=== PATIENT | male | born 1975 | race Caucasian/White ===

== ENCOUNTER 2016-11-25 10:14 | Emergency (ER) | payer SELFPAY ==
[2016-11-25] MEDS ORDERED: DEXAMETHASONE SOD PHOS INJ 10 MG/1 ML VIAL IM ONE (10:42)
--- NOTE | 2016-11-25 10:44 | ER Document Report ---
HPI - HPI Pain Level: 5 Notes: Patient is a 40-year-old male who presents the ED complaining of sore throat, right ear pain, occasional cough, body ache, wheezing 4 days. Patient states that he usually gets strep once a year and this is about that same time. Patient also states that his ears been bothering him on and off for the last couple weeks. Patient has a past medical history significant for asthma and smoking. He denies any drug allergies. He does not take any medications daily. Denies any illicit drug use. Patient states that he just moved to the area and does not have any insurance, nor does he have a PCM. Otherwise she is still eating and drinking without any difficulties. Patient states his cough is primarily from the wheeziness and the irritation in his throat. Denies any fever, headache, tinnitus, dizziness, dysphagia, chest pain, syncope, palpitations, shortness of breath, dyspnea, abdominal pain, nausea/R/diarrhea, dysuria, or rash. Denies any recent travel, sick contacts, illness otherwise. - ROS Notes: REVIEW OF SYSTEMS: CONSTITUTIONAL : Denies fever, chills, or sweats. Denies recent illness. EENT: see hpi CARDIOVASCULAR: Denies chest pain. Denies palpitations or racing or irregular heart beat. Denies ankle edema. RESPIRATORY: see hpi GASTROINTESTINAL: Denies abdominal pain or distention. Denies nausea, vomiting , or diarrhea. Denies blood in vomitus, stools, or per rectum. Denies black, tarry stools. Denies constipation. GENITOURINARY: Denies difficulty urinating, painful urination, burning, frequency, blood in urine, or discharge. MUSCULOSKELETAL: see hpi SKIN: Denies rash, lesions or sores. NEUROLOGICAL: Denies confusion or altered mental status. Denies passing out or loss of consciousness. Denies dizziness or lightheadedness. Denies headache. Denies weakness or paralysis or loss of use of either side. Denies problems with gait or speech. Denies sensory loss, numbness, or tingling. Denies seizures. PSYCHIATRIC: Denies anxiety or stress. Denies depression, suicidal ideation, or homicidal ideation. ALL OTHER SYSTEMS REVIEWED AND NEGATIVE. Dictation was performed using [employer] voice recognition software - DERM Skin Color: Normal Past Medical History - Social History Smoking Status: Current Every Day Smoker Family History: Reviewed & Not Pertinent Patient has suicidal ideation: No Patient has homicidal ideation: No Renal/ Medical History: Denies: Hx Peritoneal Dialysis Vertical Provider Document - CONSTITUTIONAL Agree With Documented VS: Yes Notes: PHYSICAL EXAMINATION: GENERAL: Well-appearing, well-nourished and in no acute distress. HEAD: Atraumatic, normocephalic. EYES: Pupils equal round and reactive to light, extraocular movements intact, sclera anicteric, conjunctiva are normal. ENT: EAC clear b/l. Rt TM erythemic, mild bulging, fluid. Lt TM wnl. Nares patent and without discharge. Oropharynx erythematous. Rt tonsilar hypertrophy 1+ with exudate and erythema. Lt tonsil erythemic. No palatine shift. Uvula midline. No tongue protrusion. moist mucous membranes. No sinus tenderness. No huma's. NECK: Normal range of motion, supple. + anterior cervical chain lymphadenopathy R>L. + tend. No rigidity/meningismus. LUNGS: B/l expiratory wheezes. no crackles. HEART: Regular rate and rhythm without murmurs, rubs, gallops. ABDOMEN: Soft, nontender, nondistended abdomen. No guarding, no rebound. No masses appreciated. Normal bowel sounds present. No CVA tenderness bilaterally. No hepatosplenomegally. Musculoskeletal: FROM to passive/active. Strength 5+/5. Dinora neg. Extremities: No cyanosis, clubbing, or edema b/l. Peripheral pulses 2+. Capillary refill less than 2 seconds. NEUROLOGICAL: Normal speech, normal gait. Normal sensory, motor exams PSYCH: Normal mood, normal affect. SKIN: Warm, Dry, normal turgor, no rashes or lesions noted. - INFECTION CONTROL TRAVEL OUTSIDE OF THE [place] IN LAST 30 DAYS: No - RESPIRATORY O2 Sat by Pulse Oximetry: 96 Course - Re-evaluation Re-evalutation: 11/25/16 11:15 Patient is a mildly febrile, well-hydrated, 40-year-old male who presents to the ED with acute otitis media of the right ear and strep pharyngitis based on H &P today. Vitals are otherwise stable aside from being febrile. Rapid strep negative, but clinically i suspect strep. Tylenol given today. Decadron 10 mg given IM today. Duoneb treatment provided today. Pt's wheezing resolved with treatment, respirations improved. I will send him home with amoxicillin 500 mg 3 times daily 10 days that will cover both the ear and the strep along with an albuterol inhaler rx. Conservative measures otherwise for symptoms. Consider consult with ENT for further evaluation of the right ear. Recheck/establish with PCM this week. Return to ED with any worsening/concerning symptoms otherwise reviewed discharge. Patient is in agreement. - Vital Signs Vital signs: Temp Pulse Resp BP Pulse Ox 101.7 F H 93 21 H 141/76 H 96 11/25/16 10:18 11/25/16 10:18 11/25/16 10:18 11/25/16 10:18 11/25/16 10:18 Discharge - Discharge Clinical Impression: Acute otitis media, right, Strep pharyngitis Condition: Stable Disposition: HOME, SELF-CARE Instructions: Strep Throat ([facility]), Otitis Media ([facility]), Amoxicillin ([facility]) Additional Instructions: Maintain adequate fluid intake Take meds as directed for full dose tylenol/ibuprofen as needed New toothbrush tomorrow evening over the counter cold medication as needed for symptoms Use inhaler as directed F/u: with your PCM in 2-3 days for a recheck Return to the ED with any worsening symptoms and/or development of fever, headache, swelling of lips/tongue/throat, trouble swallowing, neck pain/ stiffness, chest pain, palpitations, syncope, shortness of breath, trouble breathing, abdominal pain, n/v/d, or other worsening symptoms that are concerning to you. Prescriptions: Albuterol Sulfate [Proair HFA] 1 - 2 puff IH Q4 PRN #1 inhaler PRN Reason: Amoxicillin 1 tab PO TID #30 tab Forms: Smoking Cessation Education, Elevated Blood Pressure Referrals: [facility] [Provider Group] - Follow up as needed [facility] [Provider Group] - Follow up as needed ENT [Provider Group] - Follow up as needed
[2016-11-25] MEDS ORDERED: ACETAMINOPHEN 325 MG TABLET PO ONE (10:48)
[2016-11-25] MEDS ORDERED: IPRATROPIUM/ALBUTEROL 0.5-2.5 MG/3 ML AMPUL NEB ONE (10:52)
[2016-11-25 11:58] VITALS: BP 121/73
== END 2016-11-25 11:52 | disposition home or self-care (01) ==
LOC: ER 10:14
DX: J02.0 Streptococcal pharyngitis (principal); H66.91 Otitis media, unspecified, right ear; J45.909 Unspecified asthma, uncomplicated; H92.01 Otalgia, right ear; R05 Cough; R50.9 Fever, unspecified; F17.200 Nicotine dependence, unspecified, uncomplicated
CPT/HCPCS: 94640; 99283; 96372; 87070; 87880; 87077; J1100; J7620

== ENCOUNTER 2018-04-08 09:22 | Emergency (ER) | payer SELFPAY ==
[2018-04-08] MEDS ORDERED: KETOROLAC TROMETHAMINE 60 MG/2 ML SDV IM ONE (09:43)
[2018-04-08] MEDS ORDERED: DIPH/PERTUSS(ACELL)/TETANUS VAC/PF 0.5 ML SYR (>=10YO) IM ONE (09:43)
--- NOTE | 2018-04-08 09:47 | ER Document Report ---
ED Fall - General Chief Complaint: Fall Injury Stated Complaint: BACK AND RIB PAIN Time Seen by Provider: 04/08/18 09:36 Mode of Arrival: Ambulatory Information source: Patient Notes: Chief complaint: Fall History of complain:( obtained from----patient) 42 years old male had a fall last Thursday, states that he was doing some work in the attic tripped fell into a piece of wood on his left side of the chest wall, sustaining a laceration over the right forehead region and eyebrow, and fell through the ceiling to the floor. No headache, no loss of consciousness. Denies any neck pain neck stiffness. Complaint of pain over the lower back and left side of the ribs. Denies any injury to the upper limbs or lower limbs. He was ambulatory for the last 2 days. The lower back pain is increasing intensity therefore present to the ED. As well as chest wall pain Onset: Sudden Duration: 2 days Severity: Moderate Quality: Sharp Context: As described above Exacerbating factor and relieving factors: Taking a deep breath change of position REVIEW OF SYSTEMS: CONSTITUTIONAL : Denies fever, chills, or sweats. Denies recent illness. EENT: Denies eye, ear, throat, or mouth pain or symptoms. Denies nasal or sinus congestion or discharge. Denies throat, tongue, or mouth swelling or difficulty swallowing. CARDIOVASCULAR: Denies chest pain. Denies palpitations or racing or irregular heart beat. Denies ankle edema. RESPIRATORY: Denies cough, cold, or chest congestion. Denies shortness of breath, difficulty breathing, or wheezing. GASTROINTESTINAL: Denies distention. Denies nausea, vomiting, or diarrhea. Denies blood in vomitus, stools, or per rectum. Denies black, tarry stools. Denies constipation. GENITOURINARY: Denies difficulty urinating, painful urination, burning, frequency, blood in urine, or discharge. FEMALE GENITOURINARY: Denies vaginal bleeding, heavy or abnormal periods, irregular periods. Denies vaginal discharge or odor. MUSCULOSKELETAL: Denies back or neck pain or stiffness. Denies joint pain or swelling. SKIN: Denies rash, lesions or sores. HEMATOLOGIC : Denies easy bruising or bleeding. LYMPHATIC: Denies swollen, enlarged glands. NEUROLOGICAL: Denies confusion or altered mental status. Denies passing out or loss of consciousness. Denies dizziness or lightheadedness. Denies headache. Denies weakness or paralysis or loss of use of either side. Denies problems with gait or speech. Denies sensory loss, numbness, or tingling. Denies seizures. PSYCHIATRIC: Denies anxiety or stress. Denies depression, suicidal ideation, or homicidal ideation. ALL OTHER SYSTEMS REVIEWED AND NEGATIVE. PHYSICAL EXAMINATION: GENERAL: Well-appearing, well-nourished and in no acute distress. HEAD: Atraumatic, normocephalic. EYES: Pupils equal round and reactive to light, extraocular movements intact, conjunctiva are normal. ENT: Left upper eyelid minor laceration noted which is healing. Multiple minor abrasions over the forehead and face. Nares patent, oropharynx clear without exudates. Moist mucous membranes. NECK: Normal range of motion, supple without lymphadenopathy Chest wall: Sharp chest wall tenderness noted over the left lower mid axillary, and lower scapular region. On the left side LUNGS: Breath sounds clear to auscultation bilaterally and equal. No wheezes rales or rhonchi. HEART: Regular rate and rhythm without murmurs ABDOMEN: Soft, nontender, nondistended abdomen. No guarding, no rebound. No masses appreciated. Examination of genitals-deferred Musculoskeletal: Sharp tenderness noted over the lower back over the lumbar spine. Normal range of motion, no pitting or edema. No cyanosis. NEUROLOGICAL: Cranial nerves grossly intact. Normal speech, normal gait. Normal sensory, motor exams PSYCH: Normal mood, normal affect. SKIN: Warm, Dry, normal turgor, no rashes or lesions noted. Dictation was performed using [employer] voice recognition software TRAVEL OUTSIDE OF THE [place] IN LAST 30 DAYS: No - HPI Notes: Dictated - Related data Allergies/Adverse Reactions: No Known Allergies Allergy (Verified 04/08/18 09:40) Past Medical History - Social History Smoking Status: Current Every Day Smoker Chew tobacco use (# tins/day): No Frequency of alcohol use: Occasional Drug Abuse: None Lives with: Family Family History: Reviewed & Not Pertinent Patient has suicidal ideation: No Patient has homicidal ideation: No Pulmonary Medical History: Reports: Hx Asthma Renal/ Medical History: Denies: Hx Peritoneal Dialysis Past Surgical History: Reports: Hx Tonsillectomy Review of Systems - Review of Systems Notes: Dictated Physical Exam - Vital signs Vitals: Temp Pulse Resp BP Pulse Ox 98.0 F 77 18 132/82 H 99 04/08/18 09:30 04/08/18 09:30 04/08/18 09:30 04/08/18 09:30 04/08/18 09:30 - Notes Notes: Dictated Course - Vital Signs Vital signs: Temp Pulse Resp BP Pulse Ox 98.0 F 77 18 132/82 H 99 04/08/18 09:30 04/08/18 09:30 04/08/18 09:30 04/08/18 09:30 04/08/18 09:30 - Laboratory Result Diagrams: 04/08/18 11:48 04/08/18 11:48 Laboratory results interpreted by me: 04/08/18 04/08/18 11:48 11:48 RBC 5.72 H RDW 15.7 H Sodium 145.7 H Potassium 5.1 H Calcium 10.6 H ALT 10 L Total Protein 9.0 H Albumin 5.1 H - Diagnostic Test Radiology reviewed: Reports reviewed - CT of the head reported by radiologist as no bleed, CT of the chest reported by radiologist as left lower rib fracture As well as multiple nodules in the right side of the lung. Discharge - Discharge Clinical Impression: Lung nodules Fall Qualifiers: Encounter type: initial encounter Qualified Code(s): W19.XXXA - Unspecified fall, initial encounter Rib fracture Qualifiers: Encounter type: initial encounter Rib fracture type: multiple ribs Fracture type: closed Laterality: left Qualified Code(s): S22.42XA - Multiple fractures of ribs, left side, initial encounter for closed fracture Condition: Fair Disposition: HOME, SELF-CARE Instructions: Rib Injuries and Fractures ([facility]) Additional Instructions: You have multiple lung nodules on the right side please follow-up with your primary care physician as well as teacher advisor. Soon as possible Prescriptions: Diazepam [Valium 2 mg Tablet] 2 mg PO BID #15 tablet Hydrocodone Bit/Acetaminophen [Hydrocodon-Acetaminophen 5-325] 1 each PO TID # 20 tablet
--- NOTE | 2018-04-08 10:28 | RADIOLOGY REPORT (SQ) ---
EXAM DESCRIPTION: L SPINE WHOLE COMPLETED DATE/TIME: 04/08/2018 10:11 am REASON FOR STUDY: Fall and head injury COMPARISON: None. NUMBER OF VIEWS: Five views including obliques. TECHNIQUE: AP, lateral, oblique, and sacral radiographic images acquired of the lumbar spine. LIMITATIONS: None. FINDINGS: MINERALIZATION: Normal. SEGMENTATION: Normal. No transitional anatomy. ALIGNMENT: Normal. VERTEBRAE: Maintained height. No fracture or worrisome bone lesion. DISCS: Preserved height. No significant osteophytes or end plate irregularity. POSTERIOR ELEMENTS: Pedicles and facets are intact. No pars defect or posterior arch defects. HARDWARE: None in the spine. PARASPINAL SOFT TISSUES: Normal. PELVIS: Intact as visualized. No fractures or worrisome bone lesions. SI joints intact. OTHER: No other significant finding. IMPRESSION: NORMAL 5 VIEW LUMBAR SPINE. TECHNICAL DOCUMENTATION: JOB ID: [id number] [employer]- All Rights Reserved Reading location - IP/workstation name: [email or web address]
--- NOTE | 2018-04-08 10:34 | RADIOLOGY REPORT (SQ) ---
EXAM DESCRIPTION: CT HEAD WITHOUT COMPLETED DATE/TIME: 04/08/2018 10:24 am REASON FOR STUDY: Fall and head injury COMPARISON: None. TECHNIQUE: Axial images acquired through the brain without intravenous contrast. Images reviewed wi th bone, brain and subdural windows. Additional sagittal and coronal reconstructions were generated. Images stored on PACS. All CT scanners at this facility use dose modulation, iterative reconstruction, and/or weight based d osing when appropriate to reduce radiation dose to as low as reasonably achievable (ALARA). [facility]: Dose Right [facility]: CareDose [facility]: Dose Right [facility]: Teradose 4D [facility]: Ardian RADIATION DOSE: CT Rad equipment meets quality standard of care and radiation dose reduction techniq ues were employed. CTDIvol: 53.2 mGy. DLP: 1044 mGy-cm. mGy. LIMITATIONS: None. FINDINGS: VENTRICLES: Normal size and contour. CEREBRUM: No masses. No hemorrhage. No midline shift. No evidence for acute infarction. Normal gra y/white matter differentiation. No areas of low density in the white matter. CEREBELLUM: No masses. No hemorrhage. No alteration of density. No evidence for acute infarction. EXTRAAXIAL SPACES: No fluid collections. No masses. ORBITS AND GLOBE: No intra- or extraconal masses. Normal contour of globe without masses. CALVARIUM: No fracture. PARANASAL SINUSES: No fluid or mucosal thickening. SOFT TISSUES: No mass or hematoma. OTHER: No other significant finding. IMPRESSION: NORMAL BRAIN CT WITHOUT CONTRAST. EVIDENCE OF ACUTE STROKE: NO. COMMENT: Quality ID # [id number]: Final reports with documentation of one or more dose reduction techniques (e.g., Automated exposure control, adjustment of the mA and/or kV according to patient size, use of iterative reconstruction technique) TECHNICAL DOCUMENTATION: JOB ID: [id number] [employer]- All Rights Reserved Reading location - IP/workstation name: [id number]
--- NOTE | 2018-04-08 10:48 | RADIOLOGY REPORT (SQ) ---
EXAM DESCRIPTION: CT CHEST WITHOUT COMPLETED DATE/TIME: 04/08/2018 10:24 am REASON FOR STUDY: Fall and chest wall injury COMPARISON: None. TECHNIQUE: CT scan performed of the chest without intravenous contrast. Images reviewed with lung, soft tissue and bone windows. Reconstructed coronal and sagittal MPR images reviewed. All images st ored on PACS. All CT scanners at this facility use dose modulation, iterative reconstruction, and/or weight based d osing when appropriate to reduce radiation dose to as low as reasonably achievable (ALARA). [facility]: Dose Right [facility]: CareDose [facility]: Dose Right [facility]: Teradose 4D [facility]: Smart [employer] RADIATION DOSE: CT Rad equipment meets quality standard of care and radiation dose reduction techniq ues were employed. CTDIvol: 14.4 mGy. DLP: 635 mGy-cm. mGy. LIMITATIONS: No technical limitations. FINDINGS: LUNGS AND PLEURA: Scattered pulmonary nodules as follows: 5.3 mm nodule in the right upper lobe (axial series 4, image 14) 4.7 mm nodule in the right middle lobe (axial series 4, image 29) 4.2 mm nodule in the lateral right lower lobe (axial series 4, image 51) 7.2 mm nodule in the left lower lobe (axial series 4, image 39) No focal infiltrates. No pleural effusion or pneumothorax. HILAR AND MEDIASTINAL STRUCTURES: No identified masses or abnormal nodes. No obvious aneurysm. HEART AND VASCULAR STRUCTURES: No aneurysm. No pericardial effusion. UPPER ABDOMEN: No significant findings. Limited exam. THYROID AND OTHER SOFT TISSUES: No masses. No adenopathy. BONES: Nondisplaced fractures of the lateral left 6th, 7th, and 8th ribs, best visualized on the sagi ttal images (Series 602, images 80 and 81). HARDWARE: None in the chest. OTHER: No other significant findings. IMPRESSION: 1. NONDISPLACED FRACTURES OF THE LATERAL LEFT 6TH, 7TH, AND 8TH RIBS. 2. SEVERAL SMALL PULMONARY NODULES DESCRIBED ABOVE. CONSIDER FOLLOW-UP CLINICALLY INDICATED. COMMENT: F[place]ISCHNER CRITERIA FOR FOLLOW-UP OF PULMONARY NODULES Incidentally detected new nodules in persons 35 or older. HIGH RISK: History of smoking or other known risk factors. 6-8mm multiple solid nodules: LOW RISK: CT 3-6 mo; then consider CT 18-24 mo. HIGH RISK: CT 3-6 mo; t hen CT 18-24 mo. TECHNICAL DOCUMENTATION: JOB ID: [id number] Quality ID # [id number]: Final reports with documentation of one or more dose reduction techniques (e.g., Au tomated exposure control, adjustment of the mA and/or kV according to patient size, use of iterative reconstruction technique) 2010 [employer]- All Rights Reserved Reading location - IP/workstation name: [email or web address] [id number]
[2018-04-08 12:00] LABS: ABSOLUTE BASOPHILS # (AUTO) 0.1 10^3/uL (0.0-0.2); ABSOLUTE EOSINOPHILS # (AUTO) 0.1 10^3/uL (0.0-0.6); ABSOLUTE MONOCYTES (AUTO) 0.6 10^3/uL (0.1-1.4); ABSOLUTE NEUT (AUTO) 5.9 10^3/uL (1.7-8.2); EOSINOPHILS % (AUTO) 1.7 % (0-6); HEMATOCRIT 46.7 % (37.9-51.0); HEMOGLOBIN 15.7 g/dL (13.5-17.0); MEAN CORPUSCULAR HEMOGLOBIN 27.5 pg (27.0-33.4); MEAN CORPUSCULAR HGB CONC 33.6 g/dL (32.0-36.0); MEAN CORPUSCULAR VOLUME 82 fl (80-97); MONOCYTES % (AUTO) 6.5 % (3-13); PLATELET COUNT 320 10^3/uL (150-450); RED BLOOD COUNT 5.72 10^6/uL (4.35-5.55); RED CELL DISTRIBUTION WIDTH 15.7 % (11.5-14.0); SEGMENTED NEUTROPHILS % (AUTO) 67.8 % (42-78); TOTAL CELLS COUNTED % (AUTO) 100 %; WHITE BLOOD COUNT 8.7 10^3/uL (4.0-10.5)
[2018-04-08 12:08] LABS: INTERNATIONAL RATION (INR) 1.03
[2018-04-08 12:22] LABS: ALANINE AMINOTRANSFERASE 10 U/L (21-72); ALBUMIN 5.1 g/dL (3.5-5.0); ALKALINE PHOSPHATASE 108 U/L (38-126); ANION GAP 12 (5-19); ASPARTATE AMINO TRANSFERASE 17 U/L (17-59); BILIRUBIN,DIRECT 0.3 mg/dL (0.0-0.4); BILIRUBIN,TOTAL 0.5 mg/dL (0.2-1.3); BLOOD UREA NITROGEN 15 mg/dL (7-20); CALCIUM 10.6 mg/dL (8.4-10.2); CARBON DIOXIDE 27 mmol/L (22-30); CHLORIDE 107 mmol/L (98-107); GLUCOSE 78 mg/dL (75-110); POTASSIUM 5.1 mmol/L (3.6-5.0); SODIUM 145.7 mmol/L (137-145)
[2018-04-08 12:51] VITALS: BP 130/80
== END 2018-04-08 12:56 | disposition home or self-care (01) ==
LOC: ER 09:22
DX: S22.42XA Multiple fractures of ribs, left side, initial encounter for closed fracture (principal); R91.8 Other nonspecific abnormal finding of lung field; S01.81XA Laceration without foreign body of other part of head, initial encounter; M54.5 Low back pain; R07.81 Pleurodynia; W01.0XXA Fall on same level from slipping, tripping and stumbling without subsequent striking against object, initial encounter; Y92.008 Other place in unspecified non-institutional (private) residence as the place of occurrence of the external cause; F17.200 Nicotine dependence, unspecified, uncomplicated
CPT/HCPCS: 99284; 96372; 90471; 36415; 85025; 85610; 80053; 72110; 70450; 71250; 90715; J1885

== ENCOUNTER 2018-04-25 09:39 | Emergency (ER) | payer SELFPAY ==
--- NOTE | 2018-04-25 10:06 | ER Document Report ---
ED Medical Screen (RME) - General Chief Complaint: Head Injury Stated Complaint: HEAD INJURY Time Seen by Provider: 04/25/18 09:51 Mode of Arrival: Wheelchair Information source: Patient Notes: 42-year-old male presents with laceration to the right side of his head after a trip and fall just prior to arrival. Patient denies loss of consciousness, blood thinning medications. I have greeted and performed a rapid initial assessment of this patient. A comprehensive ED assessment and evaluation of the patient, analysis of test results and completion of medical decision making process we will be contacted by additional ED providers. PHYSICAL EXAMINATION: Vital signs reviewed GENERAL: Well-appearing, well-nourished and in no acute distress. LUNGS: No respiratory distress HEENT: Right-sided parietal cephalohematoma with small scalp laceration and active bleeding. Musculoskeletal: Normal range of motion NEUROLOGICAL: Normal speech, alert and oriented x3 PSYCH: Normal mood, normal affect. SKIN: Warm, Dry, normal turgor, no rashes or lesions noted. TRAVEL OUTSIDE OF THE [place] IN LAST 30 DAYS: No - HPI Onset: Just prior to arrival Quality of pain: Throbbing Associated Symptoms: denies: Dizzy/lightheaded, Nausea, Vomiting Exacerbated by: Denies Relieved by: Denies Similar symptoms previously: No Recently seen / treated by doctor: No - Related Data Smoking: Cigarettes Frequency of alcohol use: None Drug Abuse: None Allergies/Adverse Reactions: No Known Allergies Allergy (Verified 04/08/18 09:40) Past Medical History Pulmonary Medical History: Reports: Hx Asthma Renal/ Medical History: Denies: Hx Peritoneal Dialysis Past Surgical History: Reports: Hx Tonsillectomy Physical Exam - Vital signs Vitals: Temp Pulse Resp BP Pulse Ox 98.7 F 86 20 145/106 H 98 04/25/18 09:51 04/25/18 09:51 04/25/18 09:51 04/25/18 09:51 04/25/18 09:51 Course - Vital Signs Vital signs: Temp Pulse Resp BP Pulse Ox 98.7 F 86 20 145/106 H 98 04/25/18 09:51 04/25/18 09:51 04/25/18 09:51 04/25/18 09:51 04/25/18 09:51
[2018-04-25] MEDS ORDERED: LIDOCAINE 1%/EPINEPHRINE INJ 20 ML VIAL INJ ONE (10:12)
--- NOTE | 2018-04-25 10:19 | ER Document Report ---
ED Head/Face/Scalp Injury - General Chief Complaint: Head Injury Stated Complaint: HEAD INJURY Time Seen by Provider: 04/25/18 09:51 Mode of Arrival: Wheelchair Information source: Patient Notes: 42-year-old man presents to the emergency room after striking the right side of his head against a trailer hitch. Was a large amount of blood at the scene as reported by family. They did irrigated with saline at the scene. His last tetanus shot was 1 week ago. Patient denies loss of consciousness. He denies any nausea right now. Past medical history: Status post fall 1 week ago with 5 rib fractures (he got tetanus at this time). 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 Medicines: None TRAVEL OUTSIDE OF THE [place] IN LAST 30 DAYS: No - HPI Patient complains to provider of: Injury Injury to: Head Location of problem: Head Occurred: Just prior to arrival Where: Home Timing: Still present Context: Fell Loss consciousness: No loss of consciousness Remembers: Injury - Related Data Allergies/Adverse Reactions: No Known Allergies Allergy (Verified 04/08/18 09:40) Past Medical History - General Information source: Patient - Social History Smoking Status: Current Every Day Smoker Cigarette use (# per day): Yes - 1 pack/day Chew tobacco use (# tins/day): No Frequency of alcohol use: None Drug Abuse: None Lives with: Family Family History: Reviewed & Not Pertinent Patient has suicidal ideation: No Patient has homicidal ideation: No Pulmonary Medical History: Reports: Hx Asthma Renal/ Medical History: Denies: Hx Peritoneal Dialysis Past Surgical History: Reports: Hx Tonsillectomy Review of Systems - Review of Systems Constitutional: denies: Chills, Fever EENT: No symptoms reported Cardiovascular: No symptoms reported Respiratory: No symptoms reported Gastrointestinal: No symptoms reported Genitourinary: No symptoms reported Male Genitourinary: No symptoms reported Musculoskeletal: No symptoms reported Skin: No symptoms reported Hematologic/Lymphatic: No symptoms reported Neurological/Psychological: See HPI Physical Exam - Vital signs Vitals: Temp Pulse Resp BP Pulse Ox 98.7 F 86 20 145/106 H 98 04/25/18 09:51 04/25/18 09:51 04/25/18 09:51 04/25/18 09:51 04/25/18 09:51 Notes: Physical exam: GENERAL: Patient has a large amount of coagulated blood on the right side of the face and right side of the head. Bandages were removed and he does have active bleeding. HEAD: Patient has a 3 cm laceration over the temporal-parietal scalp on the right with active bleeding. EYES: Pupils equal round and reactive to light, extraocular movements intact, sclera anicteric, conjunctiva are normal. ENT: TMs normal, nares patent, oropharynx clear without exudates. Moist mucous membranes. NECK: Normal range of motion, supple without obvious mass or JVD. LUNGS: Breath sounds clear to auscultation bilaterally and equal. No wheezes rales or rhonchi. HEART: Regular rate and rhythm without murmurs, rubs or gallops. ABDOMEN: Soft, normoactive bowel sounds. No tenderness to palpation. No guarding, no rebound. No masses appreciated. EXTREMITIES: Normal range of motion, no pitting or edema. No clubbing or cyanosis. Patient does have a right index amputation at the PIP. NEUROLOGICAL: Cranial nerves II through XII grossly intact. Normal speech, moving all extremities. PSYCH: Normal mood, normal affect. SKIN: Warm, Dry, normal turgor, no rashes or lesions noted. Course - Re-evaluation Re-evalutation: 04/25/18 10:18 Patient did have bandages placed with cold man in triage. Those bandages were removed at the bedside. Patient was injected with lidocaine with epi at the site of bleeding. Patient's scalp was scrubbed with surgical scrub brush with iodine. The wound was then cleansed with moist towel with Shur-Clens. The scalp was scrubbed once more with a prescription surgical scrub brush with iodine. Only the above lesion was identified. The wound was reinjected with epi and lidocaine and a thrombin pad was placed with 4 x 4's and Coban. - Vital Signs Vital signs: Temp Pulse Resp BP Pulse Ox 98 F 78 18 121/99 H 99 04/25/18 12:53 04/25/18 12:53 04/25/18 12:53 04/25/18 12:53 04/25/18 12:53 - Diagnostic Test Radiology reviewed: Image reviewed, Reports reviewed - Head CT shows no intracranial bleed Procedures - Laceration/Wound Repair Right Head Time completed: 12:38 Wound length (cm): 3 Wound's Depth, Shape: Into muscle, Linear Laceration pre-procedure: Betadine prep applied, Chloraprep applied, Sterile drapes applied, Shur-Clens applied Anesthetic type: 1% Lidocaine w/epi Volume Anesthetic (mLs): 6 Wound explored: Clean, No foreign body removed Irrigated w/ Saline (mLs): 500 Wound Debrided: Minimal Wound Repaired With: Sutures Suture Size/Type: 4:0, Prolene Number of Sutures: 6 Notes: 04/25/18 12:39 The wound was prepped with ChloraPrep and irrigated copiously with saline with high pressure. [id number] placed to control bleeding: Worked well. Total of 6 sutures placed. The wound was then dressed with Coban again. Patient was observed and there is been no further bleeding. CT of the head shows no intracranial bleed. Patient is eating currently. Discharge - Discharge Clinical Impression: Concussion, Laceration to the scalp Condition: Stable Disposition: HOME, SELF-CARE Instructions: Concussion ([facility]), Laceration Care ([facility]) Additional Instructions: Return to the emergency room for worsening headaches. Tylenol is fine for the headache (nothing stronger). Return to the emergency room for any fever (temperature greater than 100.5), any discharge or pus from the wound. Return to the emergency room for suture removal in 7 days. Keep the laceration dry for the next week. Apply bacitracin once daily over the wound. Prescriptions: Bacitracin Zinc [Bacitracin Oint 15 gm] 1 applic TP DAILY #1 tube Forms: Follow up (Sutures/Jaymie)
--- NOTE | 2018-04-25 11:21 | RADIOLOGY REPORT (SQ) ---
EXAM DESCRIPTION: CT HEAD WITHOUT COMPLETED DATE/TIME: 04/25/2018 11:04 am REASON FOR STUDY: head trauma: right temporal region COMPARISON: 04/08/2018. TECHNIQUE: Axial images acquired through the brain without intravenous contrast. Images reviewed wi th bone, brain and subdural windows. Images stored on PACS. All CT scanners at this facility use dose modulation, iterative reconstruction, and/or weight based d osing when appropriate to reduce radiation dose to as low as reasonably achievable (ALARA). [facility]: Dose Right [facility]: SureCare [facility]: Dose Right [facility]: Teradose 4D [facility]: Yunait RADIATION DOSE: CT Rad equipment meets quality standard of care and radiation dose reduction techniq ues were employed. CTDIvol: 53.2 mGy. DLP: 1044 mGy-cm. mGy. LIMITATIONS: None. FINDINGS: VENTRICLES: Normal size and contour. CEREBRUM: No mass effect. No hemorrhage. No midline shift. Normal carcamo/white matter differentiatio n. No evidence for acute territorial infarction. CEREBELLUM: No mass effect. No hemorrhage. No alteration of density. No evidence for acute infarct ion. EXTRAAXIAL SPACES: No fluid collections. ORBITS AND GLOBE: Symmetrical contour of the globes. CALVARIUM: No depressed skull fracture. PARANASAL SINUSES: No air-fluid level. SOFT TISSUES: Right scalp laceration and soft tissue swelling. IMPRESSION: Mild soft tissue scalp injury. No acute intracranial abnormality. TECHNICAL DOCUMENTATION: JOB ID: [id number] [address] [id number]: Final reports with documentation of one or more dose reduction techniques (e.g., Automate d exposure control, adjustment of the mA and/or kV according to patient size, use of iterative recons truction technique) 2010 [employer]- All Rights Reserved Reading location - IP/workstation name: [email or web address]
[2018-04-25 12:53] VITALS: BP 121/99
== END 2018-04-25 12:53 | disposition home or self-care (01) ==
LOC: ER 09:39
DX: S06.0X0A Concussion without loss of consciousness, initial encounter (principal); S01.01XA Laceration without foreign body of scalp, initial encounter; W22.8XXA Striking against or struck by other objects, initial encounter; F17.210 Nicotine dependence, cigarettes, uncomplicated; J45.909 Unspecified asthma, uncomplicated
CPT/HCPCS: 70450; 99284

== ENCOUNTER 2018-05-02 19:41 | Inpatient (IN) | payer SELFPAY ==
[2018-05-02] MEDS ORDERED: ALBUTEROL SULFATE 0.083% NEB 2.5 MG/3 ML AMPUL NEB ONE ×2 (19:46→20:40)
[2018-05-02] MEDS ORDERED: RINGERS SOLUTION,LACTATED 2,000 ML IV ONE (19:46)
[2018-05-02] MEDS ORDERED: METHYLPREDNISOLONE INJ 125 MG/2 ML SDV IV ONE (19:46)
--- NOTE | 2018-05-02 19:49 | ER Document Report ---
ED General - General Stated Complaint: DIFFICULTY BREATHING Time Seen by Provider: 05/02/18 19:44 Cannot obtain history due to: Unstable vital signs Notes: Patient is a 42-year-old male with a past medical history of asthma, current everyday smoker, presents with approximately 8 hours of fever, cough, and shortness of breath. The patient states that his symptoms started gradually and progressively worsening since onset. The patient describes an associated severe, throbbing, stabbing pain to his left lower ribs where he sustained multiple rib fractures approximately 1 month ago during a fall. He has not done anything to try to treat his symptoms although does report that he has had some relief based on nebulizer treatments provided by EMS. EMS does report that on their initial assessment the patient he was in respiratory distress at time of presentation the patient does have labored breathing and does have difficulty providing history secondary to this. TRAVEL OUTSIDE OF THE [place] IN LAST 30 DAYS: No - Related Data Allergies/Adverse Reactions: No Known Allergies Allergy (Verified 05/02/18 22:47) Past Medical History - General Information source: Patient, Emergency Med Personnel - Social History Smoking Status: Current Every Day Smoker Frequency of alcohol use: Occasional Drug Abuse: None Lives with: Homeless Family History: Reviewed & Not Pertinent Pulmonary Medical History: Reports: Hx Asthma Renal/ Medical History: Denies: Hx Peritoneal Dialysis Past Surgical History: Reports: Hx Tonsillectomy Review of Systems - Review of Systems Notes: Constitutional: Positive for fever. HENT: Negative for sore throat. Eyes: Negative for visual changes. Cardiovascular: Negative for chest pain. Respiratory: Positive for shortness of breath, cough and wheezing Gastrointestinal: Negative for abdominal pain, vomiting or diarrhea. Genitourinary: Negative for dysuria. Musculoskeletal: Negative for back pain. Skin: Negative for rash. Neurological: Negative for headaches, weakness or numbness. 10 point ROS negative except as marked above and in HPI. Physical Exam - Vital signs Vitals: Resp BP Pulse Ox 27 H 156/101 H 94 05/02/18 19:46 05/02/18 19:46 05/02/18 19:46 Interpretation: Tachycardic, Tachypneic, Febrile Notes: PHYSICAL EXAMINATION: GENERAL: In moderate respiratory distress, appears uncomfortable and unwell HEAD: Atraumatic, normocephalic. EYES: Pupils equal round and reactive to light, extraocular movements intact, sclera anicteric, conjunctiva are normal. ENT: nares patent, oropharynx clear without exudates. Dry mucous membranes. NECK: Normal range of motion, supple without lymphadenopathy LUNGS: Moderate respiratory distress with intercostal and supraclavicular retractions. Tachypneic with initial respiratory rate of approximately 35 breaths/min. Diminished air movement in all lung corey with scattered expiratory wheezing in all lung corey. HEART: Regular tachycardia without murmurs ABDOMEN: Soft, nontender, normoactive bowel sounds. No guarding, no rebound. No masses appreciated. EXTREMITIES: Normal range of motion, no pitting or edema. No cyanosis. NEUROLOGICAL: No focal neurological deficits. Moves all extremities spontaneously and on command. PSYCH: Normal mood, normal affect. SKIN: Warm, Dry, normal turgor, no rashes or lesions noted. Course - Re-evaluation Re-evalutation: 05/02/18 19:48 Patient presents in moderate respiratory distress, supraclavicular and intercostal retractions noted, unable to speak in full sentences. He is found to be febrile to 101.5 F by EMS with associated tachypnea and mild hypoxemia, 95% on room air. The patient did sustain multiple rib fractures approximately 3 weeks ago is a significant elevated risk for pneumonia. Lung examination does reveal extensive coarse expiratory wheezing in all lung corey consistent with either COPD or an acute asthma exacerbation. Alternative consideration would be influenza. The patient is ill in appearance, does meet sepsis criteria at time of presentation given tachypnea, tachycardia, and fever. Will begin IV fluids, IV levofloxacin, IV Solu-Medrol, 2 g of IV magnesium, and continuous albuterol nebulizers. The patient has received several duo nebulizers prior to arrival. If work of breathing is not began to improve the patient was placed on BiPAP. Will continue to reassess at regular intervals. Patient is in guarded condition. 05/02/18 20:08 Patient is no longer having retractions but remains tachypneic. He continues to have coarse expiratory wheezing in all lung corey. Will continue to withhold BiPAP at this point. The patient's repeat temperature here is 103 F. Ibuprofen will be administered. Will continue to reassess the patient at regular intervals. 05/02/18 20:40 Patient continues to have extensive wheezing in all lung corey, mild tachypnea although is no longer in significant respiratory distress. Chest x-ray does not appear to show any acute pneumonia although I am awaiting radiology read. The remainder of the laboratories are otherwise relatively unremarkable. Lactate within normal range. Patient does continue to have extensive wheezing in all lung corey. I am concerned that he clinically has a pneumonia versus possible influenza. Awaiting influenza testing results. The patient will require hospitalization. Remains in guarded condition and will continue to be reassessed at regular intervals. 05/02/18 21:49 Flu test is likewise negative. I clinically suspect that the patient has an acute pneumonia despite chest x-ray being normal which does miss approximately 30% of acute pneumonias. Patient has been discussed with Dr. La who has accepted the patient for admission. Work of breathing remains moderately elevated although he is no longer in respiratory distress, no retractions and able to speak in full sentence. - Vital Signs Vital signs: Temp Pulse Resp BP Pulse Ox 98.5 F 92 16 129/63 H 98 05/02/18 23:29 05/03/18 02:20 05/03/18 02:20 05/02/18 23:29 05/02/18 23:29 - Laboratory Result Diagrams: 05/02/18 19:55 05/02/18 19:55 Laboratory results interpreted by me: 05/02/18 05/02/18 19:55 19:55 WBC 11.2 H RDW 15.7 H Seg Neutrophils % 82.4 H Lymphocytes % 10.1 L Absolute Neutrophils 9.3 H Glucose 146 H - Diagnostic Test Radiology reviewed: Image reviewed, Reports reviewed Radiology results interpreted by me: 05/02/18 21:49 Chest x-ray: No acute infiltrate or pneumothorax - EKG Interpretation by Me Additional EKG results interpreted by me: 05/03/18 03:32 Sinus tachycardia. Rate 103. No ST elevations or depressions. QTC at 503. Critical Care Note - Critical Care Note Total time excluding time spent on procedures (mins): 40 Comments: Critical care time spent obtaining history from patient or surrogate, discu ssions with consultants, development of treatment plan with patient or surrogate, evaluation of patient's response to treatment, examination of patient, ordering and performing treatments and interventions, ordering and review of laboratory studies, re-evaluation of patient's condition, ordering and review of radiographic studies and review of old charts Discharge - Discharge Clinical Impression: Respiratory distress Asthma exacerbation Qualifiers: Asthma severity: moderate Asthma persistence: persistent Qualified Code(s): J 45.41 - Moderate persistent asthma with (acute) exacerbation Sepsis Qualifiers: Sepsis type: sepsis due to unspecified organism Qualified Code(s): A41.9 - Sepsis, unspecified organism Pneumonia Qualifiers: Pneumonia type: due to unspecified organism Laterality: unspecified laterality Lung location: unspecified part of lung Qualified Code(s): J18.9 - Pneumonia, unspecified organism Condition: Fair Disposition: ADMITTED INPATIENT Admitting Provider: Hospitalist Unit Admitted: [facility]
[2018-05-02] MEDS: MAGNESIUM SULFATE/D5W 1 GM/100 ML RTUPB IV SCH ×2 (19:59→20:15)
[2018-05-02] MEDS ORDERED: IBUPROFEN 600 MG TABLET PO ONE (20:01)
[2018-05-02 20:08] LABS: VENOUS BLOOD BASE EXCESS 0.6 mmol/L; VENOUS BLOOD HCO3 25.9 mmol/L (20-32); VENOUS BLOOD PH 7.39 (7.30-7.42)
[2018-05-02 20:09] LABS: ABSOLUTE BASOPHILS # (AUTO) 0.1 10^3/uL (0.0-0.2); ABSOLUTE LYMPHOCYTES (AUTO) 1.1 10^3/uL (0.5-4.7); ABSOLUTE MONOCYTES (AUTO) 0.7 10^3/uL (0.1-1.4); ABSOLUTE NEUT (AUTO) 9.3 10^3/uL (1.7-8.2); BASOPHILS % (AUTO) 0.6 % (0-2); EOSINOPHILS % (AUTO) 0.2 % (0-6); HEMATOCRIT 39.9 % (37.9-51.0); HEMOGLOBIN 13.5 g/dL (13.5-17.0); LYMPHOCYTES % (AUTO) 10.1 % (13-45); MEAN CORPUSCULAR HEMOGLOBIN 27.7 pg (27.0-33.4); MEAN CORPUSCULAR HGB CONC 33.8 g/dL (32.0-36.0); MEAN CORPUSCULAR VOLUME 82 fl (80-97); MONOCYTES % (AUTO) 6.7 % (3-13); PLATELET COUNT 309 10^3/uL (150-450); RED BLOOD COUNT 4.87 10^6/uL (4.35-5.55); RED CELL DISTRIBUTION WIDTH 15.7 % (11.5-14.0); SEGMENTED NEUTROPHILS % (AUTO) 82.4 % (42-78); TOTAL CELLS COUNTED % (AUTO) 100 %; WHITE BLOOD COUNT 11.2 10^3/uL (4.0-10.5)
[2018-05-02] MEDS ORDERED: LEVOFLOXACIN 750 MG/D5W RTU 750 MG/150 ML RTUPB IV ONE (20:15)
[2018-05-02 20:23] LABS: ANION GAP 10 (5-19); BLOOD UREA NITROGEN 9 mg/dL (7-20); CALCIUM 9.4 mg/dL (8.4-10.2); CARBON DIOXIDE 28 mmol/L (22-30); CHLORIDE 101 mmol/L (98-107); GLUCOSE 146 mg/dL (75-110); POTASSIUM 4.2 mmol/L (3.6-5.0); SODIUM 138.5 mmol/L (137-145)
[2018-05-02] MEDS ORDERED: LIDOCAINE 5% (700 MG) TRANSDERMAL ADH..PATCH TP ONE (20:40)
--- NOTE | 2018-05-02 20:54 | RADIOLOGY REPORT (SQ) ---
EXAM DESCRIPTION: CHEST SINGLE VIEW COMPLETED DATE/TIME: 05/02/2018 8:29 pm REASON FOR STUDY: fever, cough, probable pneumonia COMPARISON: None. EXAM PARAMETERS: NUMBER OF VIEWS: One view. TECHNIQUE: Single frontal radiographic view of the chest acquired. RADIATION DOSE: NA LIMITATIONS: None. FINDINGS: LUNGS AND PLEURA: No opacities, masses or pneumothorax. No pleural effusion. MEDIASTINUM AND HILAR STRUCTURES: No masses. Contour normal. HEART AND VASCULAR STRUCTURES: Heart normal in size. Normal vasculature. BONES: No acute findings. HARDWARE: None in the chest. OTHER: No other significant finding. IMPRESSION: No acute abnormality of the lungs in AP projection. No focal airspace opacity. TECHNICAL DOCUMENTATION: JOB ID: [id number] [employer]- All Rights Reserved Reading location - IP/workstation name: [email or web address]
[2018-05-02 21:20] LABS: A TYPE INFLUENZA AG NEGATIVE (NEGATIVE); B INFLUENZA AG NEGATIVE (NEGATIVE)
[2018-05-02] MEDS ORDERED: KETOROLAC TROMETHAMINE INJ/PF 30 MG/1 ML SDV IV PRN (21:48)
[2018-05-02] MEDS ORDERED: HYDRALAZINE HCL INJ/PF 20 MG/1 ML SDV IV PRN (21:48)
[2018-05-02] MEDS ORDERED: ACETAMINOPHEN 325 MG TABLET PO PRN (21:50)
[2018-05-02] MEDS ORDERED: IPRATROPIUM/ALBUTEROL 0.5-2.5 MG/3 ML AMPUL NEB PRN (21:50)
[2018-05-02] MEDS ORDERED: CHLORPHENIRAMINE MALEATE 4 MG TABLET ONE (22:10)
[2018-05-02] MEDS ORDERED: CHLORPHENIRAMINE MALEATE 4 MG TABLET PO ONE (22:10)
--- NOTE | 2018-05-02 22:10 | EKG REPORT ---
SEVERITY:- ABNORMAL ECG - SINUS TACHYCARDIA RIGHT ATRIAL ABNORMALITY PROLONGED QT INTERVAL : Confirmed by: Shailesh Linn MD 02-May-2018 22:10:26
[2018-05-02] MEDS ORDERED: FLUTICASONE NASAL SPRAY 50 MCG/SPRY 120 SPRAY/16 GM ONE (22:11)
[2018-05-02] MEDS ORDERED: HEPARIN SOD (PORCINE) 5,000 UNIT/ML 1 ML SYRINGE SUBCUT ONE (22:15)
[2018-05-02] MEDS ORDERED: FLUTICASONE NASAL SPRAY 50 MCG/SPRY 120 SPRAY/16 GM NASL ONE (22:15)
[2018-05-02 23:03] LABS: URINE AMPHETAMINES SCREEN UNCONFIRMED POSITIVE; URINE BARBITURATES SCREEN NEGATIVE; URINE BENZODIAZEPINES SCREEN NEGATIVE; URINE COCAINE SCREEN UNCONFIRMED POSITIVE; URINE MARIJUANA (THC) SCREEN NEGATIVE; URINE METHADONE SCREEN NEGATIVE; URINE PHENCYCLIDINE SCREEN NEGATIVE
[2018-05-03] MEDS: IPRATROPIUM/ALBUTEROL 0.5-2.5 MG/3 ML AMPUL NEB SCH ×4 (02:18→19:46)
[2018-05-03] MEDS: HEPARIN SOD (PORCINE) 5,000 UNIT/ML 1 ML SYRINGE SUBCUT SCH ×3 (05:06→21:50)
[2018-05-03] MEDS: METHYLPREDNISOLONE INJ 125 MG/2 ML SDV IV SCH ×2 (05:07→13:23)
[2018-05-03 05:34] LABS: HEMATOCRIT 34.5 % (37.9-51.0); HEMOGLOBIN 11.8 g/dL (13.5-17.0); MEAN CORPUSCULAR HEMOGLOBIN 27.8 pg (27.0-33.4); MEAN CORPUSCULAR HGB CONC 34.3 g/dL (32.0-36.0); MEAN CORPUSCULAR VOLUME 81 fl (80-97); PLATELET COUNT 258 10^3/uL (150-450); RED BLOOD COUNT 4.25 10^6/uL (4.35-5.55); RED CELL DISTRIBUTION WIDTH 15.6 % (11.5-14.0); WHITE BLOOD COUNT 8.5 10^3/uL (4.0-10.5)
[2018-05-03 05:59] LABS: ANION GAP 12 (5-19); BLOOD UREA NITROGEN 11 mg/dL (7-20); CALCIUM 9.7 mg/dL (8.4-10.2); CARBON DIOXIDE 23 mmol/L (22-30); CHLORIDE 106 mmol/L (98-107); GLUCOSE 169 mg/dL (75-110); POTASSIUM 3.8 mmol/L (3.6-5.0); SODIUM 141.1 mmol/L (137-145)
[2018-05-03 06:10] LABS: ABSOLUTE LYMPHOCYTES# (MANUAL) 0.3 10^3/uL (0.5-4.7); ABSOLUTE MONOCYTES # (MANUAL) 0.2 10^3/uL (0.1-1.4); ABSOLUTE NEUTROPHILS# (MANUAL) 8.1 10^3/uL (1.7-8.2); BASOPHILS % (MANUAL) 0 % (0-2); EOSINOPHILS % (MANUAL) 0 % (0-6); LYMPHOCYTES % (MANUAL) 2 % (13-45); MONOCYTES % (MANUAL) 2 % (3-13); SEGMENTED NEUTROPHILS % (MAN) 95 % (42-78); TOTAL CELLS COUNTED 100
[2018-05-03 06:13] LABS: HELMET CELLS 1+; OVALOCYTES 1+; PLATELET COMMENT ADEQUATE; POIKILOCYTOSIS 1+; TOXIC GRANULATION 1+
--- NOTE | 2018-05-03 06:28 | PDOC H&P ---
History of Present Illness Admission Date/PCP: 05/02/18 21:54 Patient complains of: Shortness of breath History of Present Illness: FAY BROWN is a 42 year old male with a past medical history of COPD, chronic maxillary sinusitis and tobacco dependence. He presents with 1 day of shortness of breath, runny nose, GERD, nonproductive cough, fever and left-sided pleuritic chest pain which is nonradiating and 2 out of 5 intensity increased with deep breath or cough.. Patient fell through a roof while working sustaining in several facial and scalp lacerations as well as left lower rib fracture and subsequent splinting. In the emergency room he has a physical exam notable for sinus congestion and bilateral rhonchi. He receives empiric antibiotics and ref erred to the hospitalist for admission. Past Medical History Pulmonary Medical History: Reports: Asthma, Chronic Obstructive Pulmonary Disease (COPD) Psychiatric Medical History: Reports: Substance Abuse, Tobacco Dependency Past Surgical History Past Surgical History: Reports: Tonsillectomy Social History Information Source: Patient, Emergency Med Personnel, [facility] Records Lives with: Homeless Smoking Status: Current Every Day Smoker Cigarettes Packs Per Day: 1 Frequency of Alcohol Use: None Drugs: Cocaine, Other - Amphetamine - Advance Directive Resuscitation Status: Full Code Family History Family History: COPD Parental Family History Reviewed: Yes Children Family History Reviewed: Yes Sibling(s) Family History Reviewed.: Yes Medication/Allergy Home Medications: No Home Medications 05/02/18 Allergies/Adverse Reactions: No Known Allergies Allergy (Verified 05/02/18 22:47) Review of Systems Constitutional: PRESENT: as per HPI, anorexia, chills, fatigue, fever(s) Eyes: ABSENT: visual disturbances Ears: ABSENT: hearing changes Cardiovascular: PRESENT: chest pain. ABSENT: dyspnea on exertion, edema, orthropnea, palpitations Respiratory: PRESENT: as per HPI, cough, dyspnea, sputum. ABSENT: hemoptysis Gastrointestinal: ABSENT: abdominal pain, constipation, diarrhea, hematemesis, hematochezia, nausea, vomiting Genitourinary: ABSENT: dysuria, hematuria Musculoskeletal: ABSENT: joint swelling Integumentary: ABSENT: rash, wounds Neurological: ABSENT: abnormal gait, abnormal speech, confusion, dizziness, focal weakness, syncope Psychiatric: ABSENT: anxiety, depression, homidical ideation, suicidal ideation Endocrine: ABSENT: cold intolerance, heat intolerance, polydipsia, polyuria Hematologic/Lymphatic: ABSENT: easy bleeding, easy bruising Physical Exam Vital Signs: Temp Pulse Resp BP Pulse Ox 97.1 F 81 16 122/68 97 05/03/18 03:04 05/03/18 03:04 05/03/18 03:04 05/03/18 03:04 05/03/18 03:04 Intake & Output 05/01/18 05/02/18 05/03/18 11:59 11:59 11:59 Intake Total 2350 Balance 2350 Weight 68.2 kg General appearance: PRESENT: cooperative, disheveled, mild distress, thin Head exam: PRESENT: normocephalic, other - Several facial lacerations without extensive erythema, ulcer or exudate Eye exam: PRESENT: conjunctiva pink, EOMI, PERRLA. ABSENT: scleral icterus Ear exam: PRESENT: normal external ear exam Mouth exam: PRESENT: moist, tongue midline Neck exam: ABSENT: carotid bruit, JVD, lymphadenopathy, thyromegaly Respiratory exam: PRESENT: accessory muscle use, crackles, prolonged expiratory phas, rales, retraction, rhonchi, tachypnea. ABSENT: wheezes Cardiovascular exam: PRESENT: RRR. ABSENT: diastolic murmur, rubs, systolic murmur Pulses: PRESENT: normal dorsalis pedis pul Vascular exam: PRESENT: normal capillary refill GI/Abdominal exam: PRESENT: normal bowel sounds, soft. ABSENT: distended, guarding, mass, organolmegaly, rebound, tenderness Rectal exam: PRESENT: deferred Extremities exam: PRESENT: full ROM. ABSENT: calf tenderness, clubbing, pedal edema Neurological exam: PRESENT: alert, awake, oriented to person, oriented to place, oriented to time, oriented to situation, CN II-XII grossly intact. ABSENT: motor sensory deficit Psychiatric exam: PRESENT: appropriate affect, normal mood. ABSENT: homicidal ideation, suicidal ideation Skin exam: PRESENT: dry, intact, warm. ABSENT: cyanosis, rash Results Laboratory Results: 05/03/18 04:55 05/03/18 04:55 05/02/18 05/02/18 05/02/18 19:55 19:55 19:55 WBC 11.2 H RBC 4.87 Hgb 13.5 Hct 39.9 MCV 82 MCH 27.7 MCHC 33.8 RDW 15.7 H Plt Count 309 Seg Neutrophils % 82.4 H Lymphocytes % 10.1 L Monocytes % 6.7 Eosinophils % 0.2 Basophils % 0.6 Absolute Neutrophils 9.3 H Absolute Lymphocytes 1.1 Absolute Monocytes 0.7 Absolute Eosinophils 0.0 Absolute Basophils 0.1 VBG pH VBG pCO2 VBG HCO3 VBG Base Excess Sodium 138.5 Potassium 4.2 Chloride 101 Carbon Dioxide 28 Anion Gap 10 BUN 9 Creatinine 1.01 Est GFR ( Amer) > 60 Est GFR (Non-Af Amer) > 60 Glucose 146 H Lactic Acid 1.7 Calcium 9.4 05/02/18 05/03/18 05/03/18 19:55 04:55 04:55 WBC 8.5 RBC 4.25 L Hgb 11.8 L Hct 34.5 L MCV 81 MCH 27.8 MCHC 34.3 RDW 15.6 H Plt Count 258 Seg Neutrophils % Not Reportable Lymphocytes % Not Reportable Monocytes % Not Reportable Eosinophils % Not Reportable Basophils % Not Reportable Absolute Neutrophils Not Reportable Absolute Lymphocytes Not Reportable Absolute Monocytes Not Reportable Absolute Eosinophils Not Reportable Absolute Basophils Not Reportable VBG pH 7.39 VBG pCO2 44.0 VBG HCO3 25.9 VBG Base Excess 0.6 Sodium 141.1 Potassium 3.8 Chloride 106 Carbon Dioxide 23 Anion Gap 12 BUN 11 Creatinine 1.00 Est GFR ( Amer) > 60 Est GFR (Non-Af Amer) > 60 Glucose 169 H Lactic Acid Calcium 9.7 05/02/18 19:55 NT-Pro-B Natriuret Pep 60 Impressions: Chest X-Ray 05/02/18 19:44 IMPRESSION: No acute abnormality of the lungs in AP projection. No focal airspace opacity. Assessment & Plan - Diagnosis (1) Pneumonia Qualifiers: Pneumonia type: due to unspecified organism Laterality: unspecified laterality Lung location: unspecified part of lung Qualified Code(s): J18.9 - Pneumonia, unspecified organism Is this a current diagnosis for this admission?: Yes Plan: Pneumonia care set deployed, incentive spirometry, avoid splinting, follow-up blood culture (2) COPD exacerbation Is this a current diagnosis for this admission?: Yes Plan: Albuterol and Atrovent, trial prednisone (3) Tobacco abuse Is this a current diagnosis for this admission?: Yes Plan: Tobacco Dependence patient received tobacco cessation counseling and offered nicotine replacement options (4) Substance abuse Is this a current diagnosis for this admission?: Yes Plan: Amphetamine and cocaine, education - Time Time Spent: 50 to 70 Minutes - Inpatient Certification Medical Necessity: Need Close Monitoring Due to Risk of Patient Decompensation
[2018-05-03] MEDS ORDERED: NICOTINE 14 MG/24 HR PATCH.TD24 TD ONE (07:00)
[2018-05-03] MEDS: PREDNISONE 20 MG TABLET PO SCH ×2 (09:12→17:36)
[2018-05-03] MEDS: FLUTICASONE NASAL SPRAY 50 MCG/SPRY 120 SPRAY/16 GM NASL SCH ×2 (09:12→21:51)
[2018-05-03] MEDS: DIAZEPAM 5 MG TABLET PO SCH ×3 (09:59→21:50)
--- NOTE | 2018-05-03 11:09 | PDOC PROGRESS REPORT ---
Subjective Progress Note for:: 05/03/18 Subjective:: This is 42 years old male patient with past medical history of substance abuse, tobacco dependence and COPD presents with chief complaint of shortness of breath. Patient has also associated chest pain from rib fracture. Patient is being treated empirically as a case of pneumonia. Morning I seen patient resting in bed he complains of lack of sleep and anxiety. Reason For Visit: ASTHMA EXACERBATION,PNEUOMONIA Physical Exam Vital Signs: Temp Pulse Resp BP Pulse Ox 97.9 F 78 16 129/66 H 96 05/03/18 07:51 05/03/18 08:08 05/03/18 08:08 05/03/18 07:51 05/03/18 08:08 Intake & Output 05/02/18 05/03/18 05/04/18 06:59 06:59 06:59 Intake Total 2850 Output Total 0 Balance 2850 Weight 68 kg General appearance: PRESENT: no acute distress Head exam: PRESENT: other - Abrasion on his face Eye exam: PRESENT: conjunctiva pink Mouth exam: PRESENT: moist Neck exam: ABSENT: carotid bruit, JVD, lymphadenopathy, thyromegaly Respiratory exam: PRESENT: clear to auscultation emir. ABSENT: rales, rhonchi, wheezes Cardiovascular exam: PRESENT: RRR. ABSENT: diastolic murmur, rubs, systolic murmur GI/Abdominal exam: PRESENT: normal bowel sounds, soft. ABSENT: distended, guarding, mass, organolmegaly, rebound, tenderness Neurological exam: PRESENT: alert, awake, oriented to time, oriented to sit uation Psychiatric exam: PRESENT: normal mood Results Laboratory Results: 05/03/18 04:55 05/03/18 04:55 05/02/18 05/02/18 05/02/18 19:55 19:55 19:55 WBC 11.2 H RBC 4.87 Hgb 13.5 Hct 39.9 MCV 82 MCH 27.7 MCHC 33.8 RDW 15.7 H Plt Count 309 Seg Neutrophils % 82.4 H Lymphocytes % 10.1 L Monocytes % 6.7 Eosinophils % 0.2 Basophils % 0.6 Absolute Neutrophils 9.3 H Absolute Lymphocytes 1.1 Absolute Monocytes 0.7 Absolute Eosinophils 0.0 Absolute Basophils 0.1 VBG pH VBG pCO2 VBG HCO3 VBG Base Excess Sodium 138.5 Potassium 4.2 Chloride 101 Carbon Dioxide 28 Anion Gap 10 BUN 9 Creatinine 1.01 Est GFR ( Amer) > 60 Est GFR (Non-Af Amer) > 60 Glucose 146 H Lactic Acid 1.7 Calcium 9.4 05/02/18 05/03/18 05/03/18 19:55 04:55 04:55 WBC 8.5 RBC 4.25 L Hgb 11.8 L Hct 34.5 L MCV 81 MCH 27.8 MCHC 34.3 RDW 15.6 H Plt Count 258 Seg Neutrophils % Not Reportable Lymphocytes % Not Reportable Monocytes % Not Reportable Eosinophils % Not Reportable Basophils % Not Reportable Absolute Neutrophils Not Reportable Absolute Lymphocytes Not Reportable Absolute Monocytes Not Reportable Absolute Eosinophils Not Reportable Absolute Basophils Not Reportable VBG pH 7.39 VBG pCO2 44.0 VBG HCO3 25.9 VBG Base Excess 0.6 Sodium 141.1 Potassium 3.8 Chloride 106 Carbon Dioxide 23 Anion Gap 12 BUN 11 Creatinine 1.00 Est GFR ( Amer) > 60 Est GFR (Non-Af Amer) > 60 Glucose 169 H Lactic Acid Calcium 9.7 05/02/18 19:55 NT-Pro-B Natriuret Pep 60 Impressions: Chest X-Ray 05/02/18 19:44 IMPRESSION: No acute abnormality of the lungs in AP projection. No focal airspace opacity. Assessment & Plan - Diagnosis (1) Pneumonia Qualifiers: Pneumonia type: due to unspecified organism Laterality: unspecified laterality Lung location: unspecified part of lung Qualified Code(s): J18.9 - Pneumonia, unspecified organism Is this a current diagnosis for this admission?: Yes Plan: Continue current regimen (2) Substance abuse Is this a current diagnosis for this admission?: Yes Plan: Patient advised that with using illicit drug (3) Tobacco abuse Is this a current diagnosis for this admission?: Yes Plan: Patient counseled and encouraged to quit smoking (4) COPD (chronic obstructive pulmonary disease) Qualifiers: Emphysema type: unspecified Is this a current diagnosis for this admission?: Yes Plan: As needed breathing treatment.
[2018-05-03] MEDS ORDERED: LEVOFLOXACIN 750 MG/D5W RTU 750 MG/150 ML RTUPB IV SCH ×2 (18:00)
[2018-05-03] MEDS ORDERED: LEVOFLOXACIN 750 MG/D5W RTU 150 ML IV SCH (22:00)
[2018-05-04] MEDS: IPRATROPIUM/ALBUTEROL 0.5-2.5 MG/3 ML AMPUL NEB SCH ×3 (01:58→14:06)
[2018-05-04] MEDS: DIAZEPAM 5 MG TABLET PO SCH ×2 (03:20→09:13)
[2018-05-04] MEDS: HEPARIN SOD (PORCINE) 5,000 UNIT/ML 1 ML SYRINGE SUBCUT SCH ×2 (05:32→14:34)
[2018-05-04] MEDS: PREDNISONE 20 MG TABLET PO SCH (09:13)
[2018-05-04] MEDS: FLUTICASONE NASAL SPRAY 50 MCG/SPRY 120 SPRAY/16 GM NASL SCH (09:16)
--- NOTE | 2018-05-04 09:43 | PDOC DISCHARGE SUMMARY ---
General - Admit/Disc Date/PCP Admission Date/Primary Care Provider: 05/02/18 21:54 Discharge Date: 05/04/18 - Discharge Diagnosis (1) Pneumonia Is this a current diagnosis for this admission?: Yes (2) Substance abuse Is this a current diagnosis for this admission?: Yes (3) Tobacco abuse Is this a current diagnosis for this admission?: Yes (4) COPD (chronic obstructive pulmonary disease) Is this a current diagnosis for this admission?: Yes - Additional Information Resuscitation Status: Full Code Home Medications: No Home Medications 05/02/18 History of Present Illness History of Present Illness: FAY BROWN is a 42 year old male with a past medical history of COPD, chronic maxillary sinusitis and tobacco dependence. He presents with 1 day of shortness of breath, runny nose, GERD, nonproductive cough, fever and left-sided pleuritic chest pain which is nonradiating and 2 out of 5 intensity increased with deep breath or cough.. Patient fell through a roof while working sustaining in several facial and scalp lacerations as well as left lower rib fracture and subsequent splinting. In the emergency room he has a physical exam notable for sinus congestion and bilateral rhonchi. He receives empiric antibiotics and referred to the hospitalist for admission. Hospital Course Hospital Course: his is 42 years old male patient with past medical history of substance abuse, tobacco dependence and COPD presents with chief complaint of shortness of breath. Patient has also associated chest pain from rib fracture. Patient has been managed with Levaquin empirically for the pneumonia and as needed bronchodilators for his COPD. His chest pain also managed accordingly. This morning I seen patient playing with his cell phone. He is awake alert oriented is not in pain or any form of distress. Patient advised to follow-up with his primary care physician and he is going to be discharged with Zithromax. Physical Exam Vital Signs: Temp Pulse Resp BP Pulse Ox 98.1 F 93 17 142/91 H 96 05/04/18 07:16 05/04/18 07:16 05/04/18 07:16 05/04/18 07:16 05/04/18 07:16 Intake & Output 05/03/18 05/04/18 05/05/18 06:59 06:59 06:59 Intake Total 2850 1812 Output Total 0 Balance 2850 1812 Weight 68 kg 68 kg Results Laboratory Results: 05/03/18 04:55 05/03/18 04:55 05/02/18 19:55 NT-Pro-B Natriuret Pep 60 Impressions: Chest X-Ray 05/02/18 19:44 IMPRESSION: No acute abnormality of the lungs in AP projection. No focal ai rspace opacity. Qualifiers - * PATIENT BEING DISCHARGED WITH ANY OF THE FOLLOWING DIAGNOSIS: No
[2018-05-04] MEDS ORDERED: NICOTINE 14 MG/24 HR PATCH.TD24 TD SCH (10:00)
[2018-05-04 11:50] VITALS: BP 144/92
== END 2018-05-04 14:58 | disposition home or self-care (01) | DRG 190 ==
LOC: ER 19:41 → EH 21:54 → 3W 23:14
PROVIDERS: ADMIT Internal Medicine; ATTEND Internal Medicine
PROC: 3E0F73Z Introduction of Anti-inflammatory into Respiratory Tract, Via Natural or Artificial Opening (ICD-10-PCS; principal; 2018-05-03)
PROC: 3E02340 Introduction of Influenza Vaccine into Muscle, Percutaneous Approach (ICD-10-PCS; 2018-05-04)
DX: J44.1 Chronic obstructive pulmonary disease with (acute) exacerbation (principal); J18.9 Pneumonia, unspecified organism; J45.41 Moderate persistent asthma with (acute) exacerbation; J44.0 Chronic obstructive pulmonary disease with (acute) lower respiratory infection; K21.9 Gastro-esophageal reflux disease without esophagitis; F17.210 Nicotine dependence, cigarettes, uncomplicated; Z59.0 Homelessness; Z23 Encounter for immunization; Z83.6 Family history of other diseases of the respiratory system
CPT/HCPCS: 36415; 71045; 80048; 80307; 82803; 83036; 83605; 83880; 85025; 87040; 87804; 90686; 93005; 93010; 94640; 94799; 96365; 96367; 96375; 99291; J1644; J1956; J2930; J3475; J3490; J7120; J7512; J7620